=== PATIENT | female | born 1930 | race Caucasian/White ===

== ENCOUNTER 2018-10-05 14:50 | Emergency (ER) | payer MEDICARE, OTHER, MEDICAID ==
[2018-10-05] MEDS: DIPHENHYDRAMINE 25 MG CAP PO (20:25)
[2018-10-05] MEDS: predniSONE 20 MG TAB PO (20:25)
[2018-10-05] MEDS: CEPHALEXIN 500 MG CAP PO (20:25)
== END 2018-10-05 20:42 | disposition home or self-care (01) ==
LOC: E/R 14:50
DX: L29.9 Pruritus, unspecified (principal); T36.8X5A Adverse effect of other systemic antibiotics, initial encounter; T37.0X5A Adverse effect of sulfonamides, initial encounter; I10 Essential (primary) hypertension; I25.10 Atherosclerotic heart disease of native coronary artery without angina pectoris; E66.9 Obesity, unspecified; N39.0 Urinary tract infection, site not specified
CPT/HCPCS: 99283